=== PATIENT | male | born 1995 | race Caucasian/White ===

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

== ENCOUNTER 2017-08-24 19:37 | Emergency (ER) | payer OTHER ==
[2017-08-24 20:34] VITALS: BP 105/57
--- NOTE | 2017-08-24 20:55 | UC ---
FLU HPI - HPI Summary HPI Summary: Pt presents with one day history of dry cough, fatigue, and body aches. 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 He has felt hot and cold all day today, but has not taken his temperature. Does have some nausea. No vomiting. Denies SOB, chest pain, abdominal pain - History of Current Complaint Chief Complaint: UCRespiratory Stated Complaint: FLU SYMPTOMS Time Seen by Provider: 08/24/17 20:55 Hx Obtained From: Patient Onset/Duration: Sudden Onset Severity Currently: Moderate Severity Initially: Moderate Pain Intensity: 5 Pain Scale Used: 0-10 Numeric - Allergy/Home Medications Allergies/Adverse Reactions: Allergies Allergy/AdvReac Type Severity Reaction Status Date / Time No Known Allergies Allergy Verified 08/24/17 20:34 Home Medications: Home Medications Diphenhydra/Phenyleph/Acetamin [Cold & Flu Relief Multi-Sym Lq] PRN 08/24/17 [ History] Sulfamethox/Trimethoprim DS* [Bactrim DS 800/160 TAB*] 1 tab PO BID 08/24/17 [ History Confirmed 08/24/17] PMH/Surg Hx/FS Hx/Imm Hx Previously Healthy: Yes - Surgical History Surgical History: Yes Surgery Procedure, Year, and Place: Appendectomy, August 2014 - Family History Known Family History: Positive: Cardiac Disease - Hx in maternal grandfather - Social History Occupation: Student Lives: With Family Alcohol Use: Occasionally Substance Use Type: None Smoking Status (MU): Never Smoked Tobacco Review of Systems Constitutional: Chills, Fatigue, Other - Body aches Skin: Negative Eyes: Negative ENT: Negative Respiratory: Cough Cardiovascular: Negative Gastrointestinal: Negative Neurological: Negative Psychological: Negative All Other Systems Reviewed And Are Negative: Yes Physical Exam Triage Information Reviewed: Yes Appearance: No Pain Distress, Well-Nourished, Ill-Appearing Vital Signs: Initial Vital Signs Temp 99.9 F 08/24/17 20:31 Pulse 82 08/24/17 20:31 Resp 16 08/24/17 20:31 BP 105/57 08/24/17 20:31 Pulse Ox 100 08/24/17 20:31 Vital Signs Reviewed: Yes Eyes: Positive: Conjunctiva Clear. Negative: Conjunctiva Inflamed, Discharge ENT: Positive: Hearing grossly normal, Pharynx normal, TMs normal, Uvula midline. Negative: Pharyngeal erythema, Nasal congestion, Nasal drainage, TM bulging, TM dull, TM red, Tonsillar swelling, Tonsillar exudate, Hoarse voice, Sinus tenderness Neck: Positive: Supple, Other: - Tender anterior lymphadenopathy Respiratory: Positive: Chest non-tender, Lungs clear, Normal breath sounds, No respiratory distress, No accessory muscle use Cardiovascular: Positive: RRR, No Murmur, Pulses Normal Abdomen Description: Positive: Nontender, No Organomegaly, Soft. Negative: CVA Tenderness (R), CVA Tenderness (L), Distended, Guarding Bowel Sounds: Positive: Present Neurological: Positive: Fatigued Psychological: Positive: Age Appropriate Behavior Skin: Negative: rashes Flu Course/Dx - Course Course Of Treatment: POC flu swab negative, but given sick contacts and presentation will treat as if Flu and advise conservative care - rest and fluids - Differential Dx/Diagnosis Provider Diagnoses: Influenza Discharge - Discharge Plan Condition: Stable Disposition: HOME Prescriptions: Oseltamivir CAP* [Tamiflu CAP*] 75 mg PO BID #10 cap Patient Education Materials: Influenza (ED) Referrals: No Primary Care Phys,NOPCP [Primary Care Provider] - Additional Instructions: If you develop a fever, shortness of breath, chest pain, new or worsening symptoms - please call your PCP or go to the ED.
[2017-08-24] MEDS ORDERED: Oseltamivir CAP* 75 MG CAP PO ONE ×2 (21:28)
== END 2017-08-24 21:40 | disposition home or self-care (01) ==
LOC: UCEAST 19:37
DX: J11.1 Influenza due to unidentified influenza virus with other respiratory manifestations (principal)
CPT/HCPCS: 87502; 99212; A9270-GY; G0463

== ENCOUNTER 2017-08-26 21:10 | Emergency (ER) | payer OTHER ==
[2017-08-26 23:26] VITALS: BP 126/63
== END 2017-08-27 00:59 | disposition home or self-care (01) ==
LOC: ED 21:10
DX: R06.02 Shortness of breath (principal); Z53.21 Procedure and treatment not carried out due to patient leaving prior to being seen by health care provider
CPT/HCPCS: 93005

== ENCOUNTER 2018-04-16 20:59 | Emergency (ER) | payer OTHER ==
[2018-04-16 21:07] VITALS: BP 144/70
--- NOTE | 2018-04-16 21:55 | ED ---
Back Pain - HPI Summary HPI Summary: 22-year-old male presents with onset of left lower back pain around 2:00 this afternoon. Describes as a constant sharp pain. Nonradiating. Worsens with deep breath and movement. States took Motrin around 17:00 with minimal relief. He does report some dysuria. Denies fever, chills, abdominal pain, nausea, vomiting, penile discharge, testicular pain or swelling, numbness, tingling, or weakness in lower extremity, loss of bowel or bladder control. - History of Current Complaint Chief Complaint: UCGU Stated Complaint: BACK PAIN Time Seen by Provider: 04/16/18 21:48 Hx Obtained From: Patient Onset/Duration: Sudden Onset, Lasting Hours Timing: Constant Back Pain Location: Is Discrete @ - Left lower back Severity Initially: Moderate Severity Currently: Moderate Pain Intensity: 7 Character: Sharp Aggravating Symptom(s): Movement, Bending, Other - deep breath Alleviating Symptom(s): Nothing Associated Signs And Symptoms: Negative: Fever, Weakness, Numbness, Tingling, Abdominal Pain, Flank Pain, Bladder Incontinence, Bowel Incontinence - Allergies/Home Medications Allergies/Adverse Reactions: Allergies Allergy/AdvReac Type Severity Reaction Status Date / Time No Known Allergies Allergy Verified 04/16/18 21:07 PMH/Surg Hx/FS Hx/Imm Hx Previously Healthy: Yes - Denies significant PMH Endocrine/Hematology History: Denies: Hx Diabetes Cardiovascular History: Denies: Hx Coronary Artery Disease, Hx Hypertension, Hx Pacemaker/ICD History: Denies: Hx Renal Disease Musculoskeletal History: Denies: Hx Rheumatoid Arthritis, Hx Osteoporosis Sensory History: Denies: Hx Hearing Aid Psychiatric History: Denies: Hx Panic Disorder - Surgical History Surgery Procedure, Year, and Place: Appendectomy, August 2014 Infectious Disease History: No Infectious Disease History: Denies: Traveled Outside the [place] in Last 30 Days - Family History Known Family History: Positive: Cardiac Disease - Hx in maternal grandfather - Social History Alcohol Use: Occasionally Hx Substance Use: No Substance Use Type: Reports: None Hx Tobacco Use: No Smoking Status (MU): Never Smoked Tobacco Review of Systems Constitutional: Negative Cardiovascular: Negative Respiratory: Negative Gastrointestinal: Negative Positive: dysuria Positive: Other - See HPI Skin: Negative Neurological: Negative All Other Systems Reviewed And Are Negative: Yes Physical Exam Triage Information Reviewed: Yes Vital Signs On Initial Exam: Initial Vitals Temp Pulse Resp BP Pulse Ox 98.8 F 59 12 144/70 100 04/16/18 21:04 04/16/18 21:04 04/16/18 21:04 04/16/18 21:04 04/16/18 21:04 Vital Signs Reviewed: Yes Appearance: Positive: Well-Appearing, No Pain Distress, Well-Nourished Skin: Positive: Warm, Skin Color Reflects Adequate Perfusion, Dry Respiratory/Lung Sounds: Positive: Breath Sounds Present, Decreased Breath Sounds Cardiovascular: Positive: RRR, S1, S2. Negative: Murmur Abdomen Description: Positive: Nontender, No Organomegaly, Soft. Negative: CVA Tenderness (R), CVA Tenderness (L), Distended, Guarding Musculoskeletal: Positive: Other - Left lower lumbar soft tissue tenderness. No tenderness over the lumbar spinous processes. Neurological: Positive: Sensory/Motor Intact, Alert, Oriented to Person Place, Time, Normal Gait Psychiatric: Positive: Affect/Mood Appropriate Diagnostics - Vital Signs Vital Signs Temp Pulse Resp BP Pulse Ox 04/16/18 21:04 98.8 F 59 12 144/70 100 - Laboratory Diagnostic Studies Comment: UA negative except for trace ketones Lab Statement: Any lab studies that have been ordered have been reviewed, and results considered in the medical decision making process. Back Pain Course/Dx - Course Course Of Treatment: 22 year old male with onset of left lower back pain today. Concern for kidney stones due to family history. Exam revealed soft tissue tenderness of left lumbar back with palpation. UA negative except for some trace ketones. Pain is likely musculoskeletal in origin. Will treat with NSAIDs and cyclobenzaprine PRN. Patient is to follow up at health center if symptoms perist. Verbalizes understanding and agrees with POC. - Diagnoses Differential Diagnosis/HQI/PQRI: Positive: Renal Colic, Strain, Other - Pyelonephritis Provider Diagnoses: Lower back pain Discharge - Sign-Out/Discharge Documenting (check all that apply): Patient Departure All imaging exams completed and their final reports reviewed: No Studies - Discharge Plan Condition: Stable Disposition: HOME Prescriptions: Cyclobenzaprine HCl 10 mg PO Q8HR PRN #15 tablet PRN Reason: Severe Pain Naproxen [Naproxen 500 mg tab] 500 mg PO BID PRN #30 tablet PRN Reason: Pain Patient Education Materials: Acute Low Back Pain (ED) Referrals: No Primary Care Phys,NOPCP [Primary Care Provider] - Additional Instructions: The urine test performed in the clinic today showed no evidence of infection nor was there any blood to suggest a kidney stone. I suspect that your pain is musculoskeletal in nature. Try to stay as active as possible as inactivity can actually worsen back pain by allowing the muscles to become weak and provided less support. Take naproxen 1 tablet every 12 hours with food as needed for pain. Take cyclobenzaprine 1 tablet every 8 hours as needed for severe pain or spasm. Is medication will make drowsy to do not take drive or operate machinery. He should also avoid alcohol while using this medication. Take a hot shower or apply a heating pad to the affected area to help relax the muscles. Use the heating pad for 15-20 minutes 3-4 times a day. Never leave the heating pad in place overnight as this could cause hughes. Follow-up in the [facility] if symptoms persist for more than 5 days. Seek immediate medical attention in the emergency room if you develop a fever greater than 100.5 F, you have severe abdominal pain, worsening back pain, persistent vomiting, have numbness, tingling, or weakness in your lower extremity, or if you loose control of your bowel or bladder. - Billing Disposition and Condition Condition: STABLE Disposition: Home
[2018-04-16] MEDS ORDERED: Naproxen TAB* 250 MG PO ONE (21:57)
[2018-04-16] MEDS ORDERED: Cyclobenzaprine TAB* 10 MG PO ONE (21:59)
== END 2018-04-16 22:23 | disposition home or self-care (01) ==
LOC: UCEAST 20:59
DX: M54.5 Low back pain (principal)
CPT/HCPCS: 81003; 99212; A9270-GY; G0463